=== PATIENT | female | born 1935 | race Caucasian/White ===

== ENCOUNTER 2019-09-09 06:57 | Inpatient (IN) ==
[2019-09-09] MEDS ORDERED: ONDANSETRON 4 MG/2 ML VIAL IV PRN (08:16)
[2019-09-09] MEDS ORDERED: hydrALAZINE 20 MG/1 ML VIAL IV PRN (08:16)
[2019-09-09] MEDS ORDERED: GLUCAGON 1 MG VIAL IM PRN (08:16)
[2019-09-09] MEDS ORDERED: DEXTROSE 50% 25 GM/50 ML VIAL IV PRN (08:16)
[2019-09-09] MEDS ORDERED: MORPHINE 4 MG/1 ML VIAL IV PRN (08:16)
[2019-09-09] MEDS ORDERED: FAMOTIDINE 20 MG/2 ML VIAL IV STA (08:24)
[2019-09-09] MEDS ORDERED: DIAZEPAM 5 MG TABLET PO STA (08:25)
[2019-09-09] MEDS ORDERED: SODIUM CHLORIDE 0.9% 1,000 ML IV SCH (08:30)
[2019-09-09] MEDS ORDERED: ceFAZolin 1,000 MG in SYRINGE 1 EACH IV ONE (08:42)
[2019-09-09] MEDS ORDERED: PHENYLEPHRINE 1 MG/10 ML SYRINGE IV ONE ×2 (09:11→11:43)
[2019-09-09] MEDS ORDERED: BUPIVACAINE SPINAL 0.75% 2 ML AMP SPINAL ONE (09:11)
[2019-09-09] MEDS ORDERED: MAGNESIUM HYDROXIDE SUSP 30 ML UDCUP PO PRN (10:00)
[2019-09-09] MEDS ORDERED: TRANEXAMIC ACID 1,000 MG/10 ML VIAL ONE ×2 (10:09→11:42)
[2019-09-09] MEDS ORDERED: BACITRACIN OINT 0.9 GM PACK TOP ONE (10:09)
[2019-09-09] MEDS ORDERED: ceFAZolin 1,000 MG VIAL ONE (10:10)
[2019-09-09] MEDS ORDERED: DEXAMETHASONE 4 MG/1 ML VIAL ONE (11:12)
[2019-09-09] MEDS ORDERED: BUPIVACAINE MPF 0.25% 30 ML VIAL ONE ×2 (11:12)
[2019-09-09] MEDS ORDERED: fentaNYL 100 MCG/2 ML VIAL ONE (11:42)
[2019-09-09] MEDS ORDERED: ePHEDrine 50 MG/ML VIAL ONE (11:42)
[2019-09-09] MEDS ORDERED: propofoL 200 MG/20 ML VIAL IV ONE (11:42)
[2019-09-09] MEDS ORDERED: ETOMIDATE 40 MG/20 ML VIAL IV ONE (11:42)
[2019-09-09] MEDS: ALBUTEROL/IPRATROPIUM 3 ML NEB RESP TX SCH ×2 (13:08→19:20)
[2019-09-09] MEDS: INSULIN REGULAR 100 UNIT/ML SUBCUT SCH ×3 (13:13→22:01)
[2019-09-09] MEDS: ceFAZolin 1,000 MG in SYRINGE 1 EACH IV SCH ×2 (13:57→22:01)
[2019-09-09] MEDS: PANTOPRAZOLE 40 MG TABLET PO SCH (13:57)
[2019-09-09] MEDS: oxyCODONE/ACETAMINOPHEN 5-325 MG TABLET PO PRN ×2 (13:57→16:09)
[2019-09-09] MEDS: DOCUSATE SODIUM 100 MG CAPSULE PO SCH ×3 (13:57→22:17)
[2019-09-09] MEDS: LACTATED RINGERS 1,000 ML IV SCH ×2 (13:58→23:49)
[2019-09-09] MEDS: GABAPENTIN 600 MG TABLET PO SCH ×3 (16:10→22:17)
[2019-09-09] MEDS: carvediloL 3.125 MG TABLET PO SCH ×2 (22:01→22:16)
[2019-09-10] MEDS: ALBUTEROL/IPRATROPIUM 3 ML NEB RESP TX SCH ×4 (00:52→19:33)
[2019-09-10 05:33] LABS: Basophils % 0.2 % (0.0-0.8); Hematocrit 30.2 VOL% (35.7-47.0); Hemoglobin 9.7 GM/DL (12.0-16.0); Immature Granulocytes % 0.3 %; Immature Granulocytes Absolute 0.02 #; Lymphocytes # 1.2 10*3/uL (1.4-4.0); Lymphocytes % 19.1 % (21.3-54.2); Mean Corpuscular HGB Conc 32.1 GM/DL (32-36); Mean Corpuscular Volume 86.5 FL (87-102); Mean Platelet Volume 9.7 FL (9.6-12.0); Monocytes % 8.2 % (1.7-12.7); Neutrophils % 72.2 % (38.7-73.9); Platelet Count 158 T/CUMM (130-400); Red Blood Count 3.49 MC/CUMM (3.8-5.5); Red Cell Distribution Width 13.2 % (9.3-17.3)
[2019-09-10 05:45] LABS: Calcium 8.3 MG/DL (8.5-10.1); Osmolality,Calculated 279.4 MOS/KG (273-304)
[2019-09-10] MEDS: FONDAPARINUX 2.5 MG/0.5 ML SYRINGE SUBCUT SCH (06:02)
[2019-09-10] MEDS ORDERED: LOSARTAN 50 MG TABLET PO SCH (09:00)
[2019-09-10] MEDS: oxyCODONE/ACETAMINOPHEN 5-325 MG TABLET PO PRN ×3 (09:39→21:35)
[2019-09-10] MEDS: GABAPENTIN 600 MG TABLET PO SCH ×3 (09:39→21:35)
[2019-09-10] MEDS: PANTOPRAZOLE 40 MG TABLET PO SCH (09:39)
[2019-09-10] MEDS: DOCUSATE SODIUM 100 MG CAPSULE PO SCH ×2 (09:39→21:34)
[2019-09-10] MEDS: INSULIN REGULAR 100 UNIT/ML SUBCUT SCH ×4 (09:40→21:35)
[2019-09-10] MEDS: LACTATED RINGERS 1,000 ML IV SCH (09:46)
[2019-09-10] MEDS: carvediloL 3.125 MG TABLET PO SCH ×2 (09:46→21:35)
[2019-09-11] MEDS: ALBUTEROL/IPRATROPIUM 3 ML NEB RESP TX SCH ×2 (00:46→07:10)
[2019-09-11] MEDS: oxyCODONE/ACETAMINOPHEN 5-325 MG TABLET PO PRN ×3 (05:52→21:17)
[2019-09-11] MEDS: FONDAPARINUX 2.5 MG/0.5 ML SYRINGE SUBCUT SCH (05:58)
[2019-09-11 06:26] LABS: Basophils % 0.3 % (0.0-0.8); Hematocrit 31.9 VOL% (35.7-47.0); Hemoglobin 10.1 GM/DL (12.0-16.0); Immature Granulocytes % 0.5 %; Immature Granulocytes Absolute 0.02 #; Lymphocytes # 1.3 10*3/uL (1.4-4.0); Lymphocytes % 31.3 % (21.3-54.2); Mean Corpuscular HGB Conc 31.7 GM/DL (32-36); Mean Corpuscular Volume 89.1 FL (87-102); Mean Platelet Volume 9.8 FL (9.6-12.0); Neutrophils % 56.9 % (38.7-73.9); Platelet Count 147 T/CUMM (130-400); Red Blood Count 3.58 MC/CUMM (3.8-5.5); Red Cell Distribution Width 13.6 % (9.3-17.3)
[2019-09-11] MEDS ORDERED: NITROGLYCERIN SL 0.4 MG TABLET SL PRN (07:12)
[2019-09-11] MEDS ORDERED: BISACODYL 5 MG TABLET PO ONE (08:25)
[2019-09-11] MEDS: PANTOPRAZOLE 40 MG TABLET PO SCH (09:40)
[2019-09-11] MEDS: GABAPENTIN 600 MG TABLET PO SCH ×3 (09:40→21:19)
[2019-09-11] MEDS: carvediloL 3.125 MG TABLET PO SCH ×2 (09:40→21:17)
[2019-09-11] MEDS: DOCUSATE SODIUM 100 MG CAPSULE PO SCH ×2 (09:40→21:17)
[2019-09-11] MEDS: INSULIN REGULAR 100 UNIT/ML SUBCUT SCH ×4 (09:42→21:19)
[2019-09-11] MEDS ORDERED: ALBUTEROL/IPRATROPIUM 3 ML NEB RESP TX PRN (10:02)
[2019-09-11 14:32] LABS: Apearance,Urine CLEAR (Clear); Bilirubin,Urine Negative (Negative); Blood, Urine Small mg/dL (Negative); Glucose,Urine (UA) Negative (Negative); Ketones,Urine Negative (Negative); Nitrite,Urine Negative (Negative); Protein,Urine Negative; RBC,Urine 8 /HPF (0-4); Squamous Epithelial Cell,Urine Occasional /HPF (0-10); Urine Color Yellow (Yellow); Urine Urobilinogen < 2.0 EU/DL (0.2-1.0); WBC,Urine 11 /HPF (0-6)
[2019-09-12] MEDS: FONDAPARINUX 2.5 MG/0.5 ML SYRINGE SUBCUT SCH (06:02)
[2019-09-12 06:06] LABS: Basophils % 0.2 % (0.0-0.8); Eosinophils # 0.1 10*3/uL (0.0-0.87); Eosinophils % 2.6 % (0.00-10.9); Hematocrit 29.8 VOL% (35.7-47.0); Hemoglobin 9.5 GM/DL (12.0-16.0); Immature Granulocytes % 0.5 %; Immature Granulocytes Absolute 0.02 #; Lymphocytes # 1.5 10*3/uL (1.4-4.0); Lymphocytes % 34.7 % (21.3-54.2); Mean Corpuscular HGB Conc 31.9 GM/DL (32-36); Mean Corpuscular Volume 86.6 FL (87-102); Mean Platelet Volume 10.5 FL (9.6-12.0); Monocytes % 8.9 % (1.7-12.7); Neutrophils % 53.1 % (38.7-73.9); Platelet Count 141 T/CUMM (130-400); Red Blood Count 3.44 MC/CUMM (3.8-5.5); Red Cell Distribution Width 13.7 % (9.3-17.3); White Blood Count 4.2 T/CUMM (4-12)
[2019-09-12 06:48] LABS: Calcium 8.2 MG/DL (8.5-10.1); Osmolality,Calculated 284.1 MOS/KG (273-304)
[2019-09-12] MEDS ORDERED: TUBERCULIN SKIN TEST 0.1 ML SYRINGE INTRADERM ONE (08:20)
[2019-09-12] MEDS ORDERED: BISACODYL 10 MG SUPP RECTAL ONE (08:43)
[2019-09-12] MEDS ORDERED: POLYETHYLENE GLYCOL POWDER 17 GM PACK PO SCH (09:00)
[2019-09-12] MEDS: oxyCODONE/ACETAMINOPHEN 5-325 MG TABLET PO PRN (09:04)
[2019-09-12] MEDS: carvediloL 3.125 MG TABLET PO SCH (09:33)
[2019-09-12] MEDS: DOCUSATE SODIUM 100 MG CAPSULE PO SCH (09:33)
[2019-09-12] MEDS: GABAPENTIN 600 MG TABLET PO SCH (09:33)
[2019-09-12] MEDS: PANTOPRAZOLE 40 MG TABLET PO SCH (09:33)
[2019-09-12] MEDS: INSULIN REGULAR 100 UNIT/ML SUBCUT SCH ×2 (09:53→11:52)
[2019-09-12 12:03] VITALS: BP 135/43
== END 2019-09-12 15:21 | disposition swing bed (61) | DRG 481 ==
LOC: EDUNIT# → EDBD → N.ED 06:57 → N.EDINP 08:16 → SUATTDRO 08:16 → N.EDINP 09:05 → N.3E 13:07
PROVIDERS: ADMIT Internal Medicine; ATTEND Internal Medicine

== ENCOUNTER 2020-07-24 11:04 | Observation (INO) ==
[2020-07-24] MEDS ORDERED: SODIUM CHLORIDE 0.9% 500 ML IV STA (11:52)
[2020-07-24 12:38] LABS: Basophils % 0.5 % (0.0-0.8); Hematocrit 42.5 VOL% (35.7-47.0); Immature Granulocytes % 0.3 %; Immature Granulocytes Absolute 0.02 #; Lymphocytes # 1.2 10*3/uL (1.4-4.0); Lymphocytes % 14.7 % (21.3-54.2); Mean Corpuscular HGB Conc 32.9 GM/DL (32-36); Mean Corpuscular Volume 86.4 FL (87-102); Mean Platelet Volume 10.1 FL (9.6-12.0); Monocytes % 5.4 % (1.7-12.7); Neutrophils % 79.1 % (38.7-73.9); Platelet Count 256 T/CUMM (130-400); Red Blood Count 4.92 MC/CUMM (3.8-5.5); Red Cell Distribution Width 13.6 % (9.3-17.3)
[2020-07-24 12:52] LABS: PT Patient Result 11.3 SECS (10.5-12.0); Partial Thromboplastin Time 25.8 SECS (23.9-33.8)
[2020-07-24 13:05] LABS: Albumin 4.2 G/DL (3.4-5.0); Bilirubin,Total 0.5 MG/DL (0.2-1.0); Calcium 9.8 MG/DL (8.5-10.1); Osmolality,Calculated 291.1 MOS/KG (273-304); Potassium 3.6 MMOL/L (3.5-5.1); Total Protein 8.1 G/DL (6.4-8.2)
[2020-07-24] MEDS ORDERED: ENOXAPARIN 60 MG/0.6 ML SYRINGE SUBCUT STA (13:06)
[2020-07-24] MEDS ORDERED: ONDANSETRON 4 MG/2 ML VIAL IV STA (13:07)
[2020-07-24] MEDS ORDERED: MORPHINE 4 MG/1 ML VIAL IV STA (13:07)
[2020-07-24] MEDS ORDERED: DEXTROSE 50% 25 GM/50 ML VIAL IV PRN (14:29)
[2020-07-24] MEDS ORDERED: NITROGLYCERIN SL 0.4 MG TABLET SL PRN (14:29)
[2020-07-24] MEDS ORDERED: ONDANSETRON 4 MG/2 ML VIAL IV PRN (14:29)
[2020-07-24] MEDS ORDERED: GLUCAGON 1 MG VIAL IM PRN (14:29)
[2020-07-24] MEDS ORDERED: ACETAMINOPHEN 325 MG TABLET PO PRN (14:29)
[2020-07-24] MEDS ORDERED: hydrALAZINE 20 MG/1 ML VIAL IV PRN (14:39)
[2020-07-24 15:20] LABS: Risk Ratio 9.21; Thyroid Stimulating Hormone 1.54 uIU/ml (0.358-3.74); VLDL CHOLESTEROL 50.2 MG/DL
[2020-07-24] MEDS: hydrALAZINE 25 MG TABLET PO SCH ×2 (16:49→20:17)
[2020-07-24] MEDS: LOSARTAN 50 MG TABLET PO SCH (16:49)
[2020-07-24] MEDS: traMADol 50 MG TABLET PO SCH ×2 (16:50→20:17)
[2020-07-24] MEDS ORDERED: ALBUTEROL 2.5 MG/3 ML NEB RESP TX PRN (18:15)
[2020-07-24] MEDS: INSULIN LISPRO 100 UNIT/ML SUBCUT SCH ×2 (18:18→20:17)
[2020-07-24] MEDS: GABAPENTIN 300 MG CAPSULE PO SCH (20:17)
[2020-07-24] MEDS ORDERED: ATORVASTATIN 40 MG TABLET PO SCH (21:00)
[2020-07-24] MEDS ORDERED: DOXEPIN 25 MG CAPSULE PO SCH (21:00)
[2020-07-25] MEDS: ENOXAPARIN 60 MG/0.6 ML SYRINGE SUBCUT SCH ×2 (01:23→12:32)
[2020-07-25 05:20] LABS: Basophils % 0.3 % (0.0-0.8); Eosinophils % 0.7 % (0.00-10.9); Hematocrit 38.6 VOL% (35.7-47.0); Hemoglobin 12.3 GM/DL (12.0-16.0); Immature Granulocytes % 0.3 %; Immature Granulocytes Absolute 0.02 #; Lymphocytes # 1.6 10*3/uL (1.4-4.0); Lymphocytes % 27.2 % (21.3-54.2); Mean Corpuscular HGB Conc 31.9 GM/DL (32-36); Mean Corpuscular Volume 88.3 FL (87-102); Mean Platelet Volume 9.9 FL (9.6-12.0); Monocytes % 9.8 % (1.7-12.7); Neutrophils % 61.7 % (38.7-73.9); Platelet Count 190 T/CUMM (130-400); Red Blood Count 4.37 MC/CUMM (3.8-5.5); Red Cell Distribution Width 13.7 % (9.3-17.3); White Blood Count 5.9 T/CUMM (4-12)
[2020-07-25 05:33] LABS: Calcium 8.9 MG/DL (8.5-10.1); Osmolality,Calculated 290.1 MOS/KG (273-304); Potassium 3.4 MMOL/L (3.5-5.1)
[2020-07-25] MEDS ORDERED: ENOXAPARIN 40 MG/0.4 ML SYRINGE SUBCUT SCH (08:00)
[2020-07-25] MEDS: hydrALAZINE 25 MG TABLET PO SCH ×2 (08:35→16:39)
[2020-07-25] MEDS: LOSARTAN 50 MG TABLET PO SCH (08:36)
[2020-07-25] MEDS: traMADol 50 MG TABLET PO SCH ×2 (08:36→16:39)
[2020-07-25] MEDS: GABAPENTIN 300 MG CAPSULE PO SCH (08:36)
[2020-07-25] MEDS: INSULIN LISPRO 100 UNIT/ML SUBCUT SCH ×2 (08:39→12:33)
[2020-07-25] MEDS ORDERED: ASPIRIN CHEW 81 MG TABLET PO SCH (09:00)
[2020-07-25] MEDS ORDERED: PANTOPRAZOLE 40 MG TABLET PO SCH (09:00)
[2020-07-25 16:39] VITALS: BP 141/65
== END 2020-07-25 17:09 | disposition home or self-care (01) ==
LOC: N.ED 11:04 → N.EDINP 11:04 → N.TELES 17:37
PROVIDERS: ADMIT Internal Medicine; ATTEND Internal Medicine

== ENCOUNTER 2020-09-28 17:18 | Inpatient (IN) ==
[2020-09-28] MEDS ORDERED: diphenhydrAMINE CAP 25 MG CAPSULE PO PRN (20:40)
[2020-09-28] MEDS ORDERED: GLUCAGON 1 MG VIAL IM PRN ×2 (20:40)
[2020-09-28] MEDS ORDERED: MORPHINE 2 MG/1 ML SYRINGE IV PRN (20:40)
[2020-09-28] MEDS ORDERED: hydrALAZINE 20 MG/1 ML VIAL IV PRN (20:40)
[2020-09-28] MEDS ORDERED: guaiFENesin/DM ER 600-30 MG TABLET PO PRN (20:40)
[2020-09-28] MEDS ORDERED: NICOTINE 21 MG/24 HR PATCH TRANSDERM PRN (20:40)
[2020-09-28] MEDS ORDERED: ONDANSETRON 4 MG/2 ML VIAL IV PRN (20:40)
[2020-09-28] MEDS ORDERED: DEXTROSE 50% 25 GM/50 ML VIAL IV PRN ×2 (20:40)
[2020-09-28 21:00] LABS: Basophils % 0.2 % (0.0-0.8); Eosinophils % 0.9 % (0.00-10.9); Hematocrit 41.2 VOL% (35.7-47.0); Hemoglobin 13.3 GM/DL (12.0-16.0); Immature Granulocytes % 0.4 %; Immature Granulocytes Absolute 0.02 #; Lymphocytes # 1.5 10*3/uL (1.4-4.0); Lymphocytes % 33.6 % (21.3-54.2); Mean Corpuscular HGB Conc 32.3 GM/DL (32-36); Mean Corpuscular Volume 86.2 FL (87-102); Monocytes % 9.4 % (1.7-12.7); Neutrophils % 55.5 % (38.7-73.9); Platelet Count 209 T/CUMM (130-400); Red Blood Count 4.78 MC/CUMM (3.8-5.5); Red Cell Distribution Width 13.2 % (9.3-17.3); White Blood Count 4.6 T/CUMM (4-12)
[2020-09-28 21:17] LABS: Calcium 8.7 MG/DL (8.5-10.1); Osmolality,Calculated 281.5 MOS/KG (273-304); Potassium 3.6 MMOL/L (3.5-5.1)
[2020-09-28 21:21] LABS: Albumin 3.5 G/DL (3.4-5.0); Bilirubin,Direct 0.15 MG/DL (0.0-0.20); Bilirubin,Indirect 1.2 MG/DL (0.0-1.0); Bilirubin,Total 1.3 MG/DL (0.20-1.00); Total Protein 6.1 G/DL (6.4-8.2)
[2020-09-28 21:22] LABS: PT Patient Result 10.9 SECS (10.5-12.0); Partial Thromboplastin Time 25.6 SECS (23.9-33.8)
[2020-09-28] MEDS ORDERED: TICAGRELOR 90 MG TABLET PO ONE (21:34)
[2020-09-28] MEDS: DOCUSATE SODIUM 100 MG CAPSULE PO SCH (21:46)
[2020-09-28] MEDS: INSULIN LISPRO 100 UNIT/ML SUBCUT SCH (21:46)
[2020-09-28] MEDS: ENOXAPARIN 60 MG/0.6 ML SYRINGE SUBCUT SCH (21:47)
[2020-09-29] MEDS: NITROGLYCERIN SL 0.4 MG TABLET SL PRN ×2 (02:22→02:27)
[2020-09-29 03:07] LABS: Basophils % 0.2 % (0.0-0.8); Eosinophils # 0.1 10*3/uL (0.0-0.87); Hematocrit 39.3 VOL% (35.7-47.0); Hemoglobin 13.2 GM/DL (12.0-16.0); Immature Granulocytes % 0.4 %; Immature Granulocytes Absolute 0.02 #; Lymphocytes # 1.4 10*3/uL (1.4-4.0); Lymphocytes % 28.9 % (21.3-54.2); Mean Corpuscular HGB Conc 33.6 GM/DL (32-36); Mean Corpuscular Volume 84.9 FL (87-102); Mean Platelet Volume 9.9 FL (9.6-12.0); Monocytes % 8.4 % (1.7-12.7); Neutrophils % 61.1 % (38.7-73.9); Platelet Count 203 T/CUMM (130-400); Red Blood Count 4.63 MC/CUMM (3.8-5.5); Red Cell Distribution Width 13.2 % (9.3-17.3)
[2020-09-29] MEDS ORDERED: NITROGLYCERIN SL 0.4 MG TABLET SL PRN (06:59)
[2020-09-29] MEDS: INSULIN LISPRO 100 UNIT/ML SUBCUT SCH ×4 (09:48→21:14)
[2020-09-29] MEDS: LOSARTAN 50 MG TABLET PO SCH (09:48)
[2020-09-29] MEDS: ASPIRIN CHEW 81 MG TABLET PO SCH (09:49)
[2020-09-29] MEDS: DOCUSATE SODIUM 100 MG CAPSULE PO SCH ×2 (09:49→21:13)
[2020-09-29] MEDS: PANTOPRAZOLE 40 MG TABLET PO SCH (09:49)
[2020-09-29] MEDS: ENOXAPARIN 60 MG/0.6 ML SYRINGE SUBCUT SCH ×2 (09:50→21:13)
[2020-09-29] MEDS: NAPROXEN 250 MG TABLET PO PRN ×3 (09:50→21:13)
[2020-09-29] MEDS ORDERED: ATORVASTATIN 40 MG TABLET PO SCH (21:00)
[2020-09-29] MEDS ORDERED: DOXEPIN 100 MG CAPSULE PO SCH (21:00)
[2020-09-30] MEDS: INSULIN LISPRO 100 UNIT/ML SUBCUT SCH ×2 (08:42→13:05)
[2020-09-30] MEDS: ASPIRIN CHEW 81 MG TABLET PO SCH (08:43)
[2020-09-30] MEDS: LOSARTAN 50 MG TABLET PO SCH (08:44)
[2020-09-30] MEDS: PANTOPRAZOLE 40 MG TABLET PO SCH (08:44)
[2020-09-30] MEDS: DOCUSATE SODIUM 100 MG CAPSULE PO SCH (08:44)
[2020-09-30] MEDS: ENOXAPARIN 60 MG/0.6 ML SYRINGE SUBCUT SCH (08:45)
[2020-09-30 12:27] VITALS: BP 190/81
== END 2020-09-30 14:35 | disposition home health service (06) | DRG 313 ==
LOC: N.TELEN
PROVIDERS: ADMIT Internal Medicine; ATTEND Internal Medicine Geriatric Medicine

== ENCOUNTER 2020-11-23 13:40 | Inpatient (IN) ==
[2020-11-23 15:38] LABS: Basophils % 0.3 % (0.0-0.8); Eosinophils # 0.2 10*3/uL (0.0-0.87); Eosinophils % 3.1 % (0.00-10.9); Hematocrit 42.6 VOL% (35.7-47.0); Hemoglobin 13.2 GM/DL (12.0-16.0); Immature Granulocytes % 0.1 %; Immature Granulocytes Absolute 0.01 #; Lymphocytes # 1.4 10*3/uL (1.4-4.0); Lymphocytes % 18.8 % (21.3-54.2); Mean Corpuscular Volume 85.7 FL (87-102); Monocytes % 5.4 % (1.7-12.7); Neutrophils % 72.3 % (38.7-73.9); Platelet Count 172 T/CUMM (130-400); Red Blood Count 4.97 MC/CUMM (3.8-5.5); White Blood Count 7.2 T/CUMM (4-12)
[2020-11-23 15:51] LABS: PT Patient Result 10.9 SECS (10.5-12.0)
[2020-11-23 15:57] LABS: Albumin 3.9 G/DL (3.4-5.0); Bilirubin,Total 0.8 MG/DL (0.20-1.00); Calcium 8.8 MG/DL (8.5-10.1); Osmolality,Calculated 281.3 MOS/KG (273-304); Total Protein 6.9 G/DL (6.4-8.2)
[2020-11-23] MEDS ORDERED: guaiFENesin/DM ER 600-30 MG TABLET PO PRN (18:00)
[2020-11-23] MEDS ORDERED: DEXTROSE 50% 25 GM/50 ML VIAL IV PRN ×2 (18:00→18:06)
[2020-11-23] MEDS ORDERED: hydrALAZINE 20 MG/1 ML VIAL IV PRN (18:00)
[2020-11-23] MEDS ORDERED: NICOTINE 21 MG/24 HR PATCH TRANSDERM PRN (18:00)
[2020-11-23] MEDS ORDERED: diphenhydrAMINE CAP 25 MG CAPSULE PO PRN (18:00)
[2020-11-23] MEDS ORDERED: DOCUSATE SODIUM 100 MG CAPSULE PO PRN (18:00)
[2020-11-23] MEDS ORDERED: GLUCAGON 1 MG VIAL IM PRN ×2 (18:00→18:06)
[2020-11-23] MEDS ORDERED: ENOXAPARIN 40 MG/0.4 ML SYRINGE SUBCUT SCH (18:00)
[2020-11-23] MEDS ORDERED: ZALEPLON 5 MG CAPSULE PO PRN (18:00)
[2020-11-23] MEDS ORDERED: ALBUTEROL/IPRATROPIUM 3 ML NEB RESP TX PRN (18:00)
[2020-11-23] MEDS: MORPHINE 2 MG/1 ML SYRINGE IV PRN (21:59)
[2020-11-23] MEDS ORDERED: ENOXAPARIN 30 MG/0.3 ML SYRINGE SUBCUT ONE (23:13)
[2020-11-24] MEDS: INSULIN LISPRO 100 UNIT/ML SUBCUT SCH ×4 (00:10→16:30)
[2020-11-24] MEDS: MORPHINE 2 MG/1 ML SYRINGE IV PRN ×3 (04:15→17:13)
[2020-11-24 05:38] LABS: Basophils % 0.5 % (0.0-0.8); Eosinophils # 0.2 10*3/uL (0.0-0.87); Eosinophils % 3.4 % (0.00-10.9); Hematocrit 37.2 VOL% (35.7-47.0); Hemoglobin 11.5 GM/DL (12.0-16.0); Immature Granulocytes % 0.3 %; Immature Granulocytes Absolute 0.02 #; Lymphocytes # 1.2 10*3/uL (1.4-4.0); Lymphocytes % 19.8 % (21.3-54.2); Mean Corpuscular HGB Conc 30.9 GM/DL (32-36); Mean Corpuscular Volume 87.1 FL (87-102); Monocytes % 7.2 % (1.7-12.7); Neutrophils % 68.8 % (38.7-73.9); Platelet Count 179 T/CUMM (130-400); Red Blood Count 4.27 MC/CUMM (3.8-5.5); Red Cell Distribution Width 14.1 % (9.3-17.3); White Blood Count 6.2 T/CUMM (4-12)
[2020-11-24 06:11] LABS: Calcium 8.1 MG/DL (8.5-10.1); Osmolality,Calculated 281.4 MOS/KG (273-304); Potassium 3.3 MMOL/L (3.5-5.1)
[2020-11-24] MEDS: PANTOPRAZOLE 40 MG TABLET PO SCH (08:41)
[2020-11-24] MEDS ORDERED: POTASSIUM CHLORIDE 20 MEQ TABLET PO STA (08:45)
[2020-11-24] MEDS ORDERED: MAGNESIUM SULF RIDER 2 GM/50 ML PREMIX IV ONE (09:30)
[2020-11-24] MEDS ORDERED: ERGOCALCIFEROL 50,000 UNIT CAPSULE PO SCH (10:00)
[2020-11-24] MEDS ORDERED: DILTIAZEM CD 120 MG CAPSULE PO SCH (10:00)
[2020-11-24] MEDS ORDERED: APIXABAN 5 MG TABLET PO SCH (10:00)
[2020-11-24 11:25] LABS: Potassium 3.8 MMOL/L (3.5-5.1)
[2020-11-24] MEDS: SOTALOL 80 MG TABLET PO SCH ×2 (11:53→22:11)
[2020-11-24] MEDS: ENOXAPARIN 60 MG/0.6 ML SYRINGE SUBCUT SCH ×2 (11:54→22:11)
[2020-11-24] MEDS: traMADol 50 MG TABLET PO SCH ×2 (14:50→22:11)
[2020-11-24] MEDS: ATORVASTATIN 40 MG TABLET PO SCH (22:11)
[2020-11-24] MEDS: ASPIRIN CHEW 81 MG TABLET PO SCH (22:12)
[2020-11-25] MEDS: INSULIN LISPRO 100 UNIT/ML SUBCUT SCH ×5 (07:25→22:27)
[2020-11-25] MEDS: ONDANSETRON 4 MG/2 ML VIAL IV PRN ×2 (07:31→12:16)
[2020-11-25] MEDS: MORPHINE 2 MG/1 ML SYRINGE IV PRN ×2 (07:32→12:16)
[2020-11-25] MEDS ORDERED: traMADol 50 MG TABLET PO SCH (08:30)
[2020-11-25] MEDS: ENOXAPARIN 60 MG/0.6 ML SYRINGE SUBCUT SCH (10:10)
[2020-11-25] MEDS: POTASSIUM CHLORIDE 10 MEQ TABLET PO SCH (10:11)
[2020-11-25] MEDS: SOTALOL 80 MG TABLET PO SCH ×2 (10:11→11:46)
[2020-11-25] MEDS: traMADol 50 MG TABLET PO SCH ×3 (10:11→22:25)
[2020-11-25] MEDS: PANTOPRAZOLE 40 MG TABLET PO SCH (10:11)
[2020-11-25] MEDS: LOSARTAN 50 MG TABLET PO SCH (10:11)
[2020-11-25] MEDS: LIDOCAINE 5% PATCH TRANSDERM SCH (10:12)
[2020-11-25] MEDS ORDERED: SOTALOL 80 MG TABLET PO SCH (21:00)
[2020-11-25] MEDS: ASPIRIN CHEW 81 MG TABLET PO SCH (22:25)
[2020-11-25] MEDS: ATORVASTATIN 40 MG TABLET PO SCH (22:25)
[2020-11-26 06:16] LABS: Basophils % 0.3 % (0.0-0.8); Eosinophils # 0.3 10*3/uL (0.0-0.87); Eosinophils % 8.2 % (0.00-10.9); Hematocrit 35.7 VOL% (35.7-47.0); Hemoglobin 11.1 GM/DL (12.0-16.0); Immature Granulocytes % 0.3 %; Immature Granulocytes Absolute 0.01 #; Lymphocytes # 1.2 10*3/uL (1.4-4.0); Lymphocytes % 33.1 % (21.3-54.2); Mean Corpuscular HGB Conc 31.1 GM/DL (32-36); Mean Corpuscular Volume 87.5 FL (87-102); Mean Platelet Volume 10.5 FL (9.6-12.0); Neutrophils % 49.1 % (38.7-73.9); Platelet Count 144 T/CUMM (130-400); Red Blood Count 4.08 MC/CUMM (3.8-5.5); Red Cell Distribution Width 13.9 % (9.3-17.3); White Blood Count 3.7 T/CUMM (4-12)
[2020-11-26 06:48] LABS: Albumin 2.7 G/DL (3.4-5.0); Bilirubin,Total 0.7 MG/DL (0.20-1.00); Calcium 8.5 MG/DL (8.5-10.1); Osmolality,Calculated 283.4 MOS/KG (273-304); Potassium 4.2 MMOL/L (3.5-5.1); Total Protein 5.6 G/DL (6.4-8.2)
[2020-11-26] MEDS: INSULIN LISPRO 100 UNIT/ML SUBCUT SCH ×4 (08:07→21:02)
[2020-11-26] MEDS ORDERED: METOPROLOL TARTRATE 5 MG/5 ML VIAL IV PRN (11:55)
[2020-11-26] MEDS ORDERED: LIDOCAINE 1% 20 ML VIAL ONE (14:08)
[2020-11-26] MEDS ORDERED: DEXAMETHASONE 4 MG/1 ML VIAL ONE (14:08)
[2020-11-26] MEDS ORDERED: TISSUE ADHESIVE 1 EACH APPLICATOR TOP ONE (14:08)
[2020-11-26] MEDS ORDERED: fentaNYL 100 MCG/2 ML VIAL ONE (15:04)
[2020-11-26] MEDS ORDERED: LIDOCAINE 2% 5 ML VIAL ONE (15:07)
[2020-11-26] MEDS ORDERED: propofoL 200 MG/20 ML VIAL IV ONE (15:07)
[2020-11-26] MEDS ORDERED: CLINDAMYCIN INJ 600 MG/50 ML PREMIX IV ONE (15:19)
[2020-11-26] MEDS: traMADol 50 MG TABLET PO SCH ×3 (15:32→21:02)
[2020-11-26] MEDS: LOSARTAN 50 MG TABLET PO SCH (17:42)
[2020-11-26] MEDS: POTASSIUM CHLORIDE 10 MEQ TABLET PO SCH (17:42)
[2020-11-26] MEDS: PANTOPRAZOLE 40 MG TABLET PO SCH (17:43)
[2020-11-26] MEDS: LIDOCAINE 5% PATCH TRANSDERM SCH (17:44)
[2020-11-26] MEDS: ASPIRIN CHEW 81 MG TABLET PO SCH (21:02)
[2020-11-27] MEDS: MORPHINE 2 MG/1 ML SYRINGE IV PRN ×4 (04:41→23:02)
[2020-11-27 06:16] LABS: Albumin 2.8 G/DL (3.4-5.0); Bilirubin,Total 0.8 MG/DL (0.20-1.00); Calcium 8.3 MG/DL (8.5-10.1); Osmolality,Calculated 277.5 MOS/KG (273-304); Potassium 3.9 MMOL/L (3.5-5.1)
[2020-11-27 06:48] LABS: Hepatitis B Core IgM Quant < 0.05 Index; Hepatitis B Surface Ag Quant < 0.10 Index; Hepatitis B Surface Ag Result Non-Reactive (NonReactive); Hepatitis C Virus Ab Quant 0.02 Index; Hepatitis C Virus Ab Result Non-Reactive (NonReactive)
[2020-11-27] MEDS: INSULIN LISPRO 100 UNIT/ML SUBCUT SCH ×4 (08:11→20:57)
[2020-11-27] MEDS: ONDANSETRON 4 MG/2 ML VIAL IV PRN (08:45)
[2020-11-27] MEDS: LIDOCAINE 5% PATCH TRANSDERM SCH (08:51)
[2020-11-27] MEDS: POTASSIUM CHLORIDE 10 MEQ TABLET PO SCH (08:52)
[2020-11-27] MEDS: LOSARTAN 50 MG TABLET PO SCH (08:52)
[2020-11-27] MEDS: traMADol 50 MG TABLET PO SCH ×3 (08:52→20:56)
[2020-11-27] MEDS: PANTOPRAZOLE 40 MG TABLET PO SCH (08:52)
[2020-11-27] MEDS: ASPIRIN CHEW 81 MG TABLET PO SCH (20:56)
[2020-11-28] MEDS: INSULIN LISPRO 100 UNIT/ML SUBCUT SCH ×4 (07:59→21:40)
[2020-11-28 08:00] LABS: Basophils % 0.5 % (0.0-0.8); Eosinophils # 0.4 10*3/uL (0.0-0.87); Eosinophils % 8.1 % (0.00-10.9); Hematocrit 39.1 VOL% (35.7-47.0); Hemoglobin 12.4 GM/DL (12.0-16.0); Immature Granulocytes % 0.7 %; Immature Granulocytes Absolute 0.03 #; Lymphocytes # 0.9 10*3/uL (1.4-4.0); Lymphocytes % 20.6 % (21.3-54.2); Mean Corpuscular HGB Conc 31.7 GM/DL (32-36); Mean Corpuscular Volume 85.6 FL (87-102); Mean Platelet Volume 10.1 FL (9.6-12.0); Monocytes % 8.8 % (1.7-12.7); Neutrophils % 61.3 % (38.7-73.9); Platelet Count 158 T/CUMM (130-400); Red Blood Count 4.57 MC/CUMM (3.8-5.5); Red Cell Distribution Width 13.7 % (9.3-17.3); White Blood Count 4.3 T/CUMM (4-12)
[2020-11-28 08:19] LABS: Calcium 8.9 MG/DL (8.5-10.1); Osmolality,Calculated 279.4 MOS/KG (273-304); Potassium 4.3 MMOL/L (3.5-5.1)
[2020-11-28] MEDS: LIDOCAINE 5% PATCH TRANSDERM SCH (09:32)
[2020-11-28] MEDS: MORPHINE 2 MG/1 ML SYRINGE IV PRN ×2 (09:39→20:49)
[2020-11-28] MEDS: traMADol 50 MG TABLET PO SCH ×3 (11:03→20:46)
[2020-11-28] MEDS: LACTATED RINGERS 1,000 ML IV SCH (11:12)
[2020-11-28] MEDS ORDERED: propofoL 200 MG/20 ML VIAL IV ONE (12:21)
[2020-11-28] MEDS ORDERED: LIDOCAINE 2% 5 ML VIAL ONE (12:21)
[2020-11-28] MEDS: POTASSIUM CHLORIDE 10 MEQ TABLET PO SCH (13:34)
[2020-11-28] MEDS: LOSARTAN 50 MG TABLET PO SCH (13:34)
[2020-11-28] MEDS: PANTOPRAZOLE 40 MG TABLET PO SCH (13:34)
[2020-11-28] MEDS: ASPIRIN CHEW 81 MG TABLET PO SCH (20:45)
[2020-11-29] MEDS: MORPHINE 2 MG/1 ML SYRINGE IV PRN ×2 (01:43→12:39)
[2020-11-29] MEDS: LACTATED RINGERS 1,000 ML IV SCH (05:40)
[2020-11-29] MEDS: INSULIN LISPRO 100 UNIT/ML SUBCUT SCH ×2 (07:24→12:56)
[2020-11-29 07:58] LABS: Basophils % 0.4 % (0.0-0.8); Eosinophils # 0.3 10*3/uL (0.0-0.87); Hematocrit 37.9 VOL% (35.7-47.0); Hemoglobin 12.3 GM/DL (12.0-16.0); Immature Granulocytes % 0.4 %; Immature Granulocytes Absolute 0.02 #; Lymphocytes # 1.1 10*3/uL (1.4-4.0); Lymphocytes % 23.7 % (21.3-54.2); Mean Corpuscular HGB Conc 32.5 GM/DL (32-36); Mean Corpuscular Volume 85.2 FL (87-102); Mean Platelet Volume 10.2 FL (9.6-12.0); Monocytes % 10.4 % (1.7-12.7); Neutrophils % 59.1 % (38.7-73.9); Platelet Count 159 T/CUMM (130-400); Red Blood Count 4.45 MC/CUMM (3.8-5.5); Red Cell Distribution Width 13.7 % (9.3-17.3); White Blood Count 4.5 T/CUMM (4-12)
[2020-11-29 08:29] LABS: Calcium 8.7 MG/DL (8.5-10.1); Osmolality,Calculated 278.5 MOS/KG (273-304)
[2020-11-29] MEDS ORDERED: BISACODYL 10 MG SUPP RECTAL ONE (08:45)
[2020-11-29 08:49] LABS: Albumin 2.9 G/DL (3.4-5.0); Bilirubin,Direct 0.38 MG/DL (0.0-0.20); Bilirubin,Indirect 0.4 MG/DL (0.0-1.0); Bilirubin,Total 0.8 MG/DL (0.20-1.00); Total Protein 6.1 G/DL (6.4-8.2)
[2020-11-29] MEDS: LIDOCAINE 5% PATCH TRANSDERM SCH (09:41)
[2020-11-29] MEDS: LOSARTAN 50 MG TABLET PO SCH (09:41)
[2020-11-29] MEDS: POTASSIUM CHLORIDE 10 MEQ TABLET PO SCH (09:41)
[2020-11-29] MEDS: PANTOPRAZOLE 40 MG TABLET PO SCH (09:42)
[2020-11-29] MEDS: traMADol 50 MG TABLET PO SCH (09:42)
[2020-11-29 13:15] VITALS: BP 145/62
== END 2020-11-29 14:34 | disposition swing bed (61) | DRG 478 ==
LOC: N.ED 13:40 → SUATTDRO 18:00 → N.EDINP 18:00 → N.TELEN 19:47
PROVIDERS: ADMIT Internal Medicine; ATTEND Internal Medicine

== ENCOUNTER 2021-02-22 17:10 | Inpatient (IN) ==
[2021-02-22 18:21] LABS: Basophils % 0.2 % (0.0-0.8); Eosinophils # 0.1 10*3/uL (0.0-0.87); Eosinophils % 0.9 % (0.00-10.9); Hematocrit 35.9 VOL% (35.7-47.0); Immature Granulocytes % 0.5 %; Immature Granulocytes Absolute 0.03 #; Lymphocytes # 0.6 10*3/uL (1.4-4.0); Lymphocytes % 10.3 % (21.3-54.2); Mean Corpuscular HGB Conc 30.6 GM/DL (32-36); Mean Corpuscular Volume 86.9 FL (87-102); Mean Platelet Volume 9.7 FL (9.6-12.0); Monocytes % 8.7 % (1.7-12.7); Neutrophils % 79.4 % (38.7-73.9); Platelet Count 214 T/CUMM (130-400); Red Blood Count 4.13 MC/CUMM (3.8-5.5); Red Cell Distribution Width 15.1 % (9.3-17.3); White Blood Count 5.8 T/CUMM (4-12)
[2021-02-22 18:52] LABS: Albumin 3.5 G/DL (3.4-5.0); Bilirubin,Total 0.6 MG/DL (0.20-1.00); Calcium 9.1 MG/DL (8.5-10.1); Osmolality,Calculated 286.4 MOS/KG (273-304); Potassium 4.1 MMOL/L (3.5-5.1); Total Protein 5.9 G/DL (6.4-8.2)
[2021-02-22] MEDS ORDERED: ONDANSETRON 4 MG/2 ML VIAL IV ONE (23:00)
[2021-02-22] MEDS ORDERED: MORPHINE 2 MG/1 ML SYRINGE IV STA (23:00)
[2021-02-23] MEDS ORDERED: GLUCAGON 1 MG VIAL IM PRN ×2 (00:01)
[2021-02-23] MEDS ORDERED: BISACODYL 5 MG TABLET PO PRN (00:01)
[2021-02-23] MEDS ORDERED: NICOTINE 21 MG/24 HR PATCH TRANSDERM PRN (00:01)
[2021-02-23] MEDS ORDERED: ALBUTEROL/IPRATROPIUM 3 ML NEB RESP TX PRN (00:01)
[2021-02-23] MEDS ORDERED: DEXTROSE 50% 25 GM/50 ML VIAL IV PRN (00:01)
[2021-02-23] MEDS ORDERED: DEXTROSE 50% 25 GM/50 ML SYRINGE IV PRN (00:01)
[2021-02-23] MEDS ORDERED: guaiFENesin/DM ER 600-30 MG TABLET PO PRN (00:01)
[2021-02-23] MEDS ORDERED: diphenhydrAMINE CAP 25 MG CAPSULE PO PRN (00:01)
[2021-02-23 01:10] LABS: Bacteria,Urine Many /HPF (Few); Bilirubin,Urine Negative (Negative); Blood, Urine Negative (Negative); Glucose,Urine (UA) Negative (Negative); Ketones,Urine 5 mg/dL (Negative); Mucus,Urine Occasional /LPF (Occasional); Nitrite,Urine Positive (Negative); Protein,Urine 30 MG/DL; RBC,Urine <1 /HPF (0-4); Squamous Epithelial Cell,Urine Occasional /HPF (0-10); Urine Appearance CLEAR (Clear); Urine Color Yellow (Yellow); Urine Specific Gravity 1.019 (1.001-1.035); Urine Urobilinogen < 2.0 EU/DL (<2.0)
[2021-02-23] MEDS: HEPARIN 5,000 UNIT/1 ML VIAL SUBCUT SCH ×3 (01:56→23:30)
[2021-02-23 05:45] LABS: Basophils % 0.5 % (0.0-0.8); Eosinophils # 0.1 10*3/uL (0.0-0.87); Eosinophils % 1.8 % (0.00-10.9); Hematocrit 30.4 VOL% (35.7-47.0); Hemoglobin 9.4 GM/DL (12.0-16.0); Immature Granulocytes % 0.5 %; Immature Granulocytes Absolute 0.02 #; Lymphocytes # 0.7 10*3/uL (1.4-4.0); Lymphocytes % 16.6 % (21.3-54.2); Mean Corpuscular HGB Conc 30.9 GM/DL (32-36); Mean Corpuscular Volume 87.4 FL (87-102); Mean Platelet Volume 10.3 FL (9.6-12.0); Monocytes % 6.1 % (1.7-12.7); Neutrophils % 74.5 % (38.7-73.9); Platelet Count 161 T/CUMM (130-400); Red Blood Count 3.48 MC/CUMM (3.8-5.5); Red Cell Distribution Width 15.4 % (9.3-17.3); White Blood Count 3.9 T/CUMM (4-12)
[2021-02-23 05:58] LABS: Albumin 2.9 G/DL (3.4-5.0); Bilirubin,Total 0.9 MG/DL (0.20-1.00); Calcium 8.8 MG/DL (8.5-10.1); Osmolality,Calculated 282.4 MOS/KG (273-304); Potassium 3.4 MMOL/L (3.5-5.1); Total Protein 5.5 G/DL (6.4-8.2)
[2021-02-23 06:36] LABS: Hepatitis B Core IgM Quant 0.14 Index; Hepatitis B Surface Ag Quant < 0.10 Index; Hepatitis B Surface Ag Result Non-Reactive (NonReactive); Hepatitis C Virus Ab Quant < 0.02 Index; Hepatitis C Virus Ab Result Non-Reactive (NonReactive)
[2021-02-23] MEDS: PANTOPRAZOLE 40 MG TABLET PO SCH (12:06)
[2021-02-23] MEDS ORDERED: LOSARTAN 50 MG TABLET PO SCH (14:30)
[2021-02-23] MEDS: MORPHINE 2 MG/1 ML SYRINGE IV PRN (17:24)
[2021-02-23] MEDS: SERTRALINE 25 MG TABLET PO SCH (21:00)
[2021-02-23] MEDS: ATORVASTATIN 40 MG TABLET PO SCH (21:00)
[2021-02-23] MEDS: ASPIRIN CHEW 81 MG TABLET PO SCH (21:00)
[2021-02-23] MEDS: METOPROLOL TARTRATE 25 MG TABLET PO SCH (21:00)
[2021-02-24] MEDS: MORPHINE 2 MG/1 ML SYRINGE IV PRN (01:56)
[2021-02-24] MEDS ORDERED: KETOROLAC 15 MG/1 ML VIAL IV ONE ×2 (04:56→22:58)
[2021-02-24 05:26] LABS: Basophils % 0.6 % (0.0-0.8); Eosinophils # 0.1 10*3/uL (0.0-0.87); Hemoglobin 9.4 GM/DL (12.0-16.0); Immature Granulocytes % 0.3 %; Immature Granulocytes Absolute 0.01 #; Lymphocytes % 28.5 % (21.3-54.2); Mean Corpuscular HGB Conc 30.3 GM/DL (32-36); Mean Corpuscular Volume 88.1 FL (87-102); Mean Platelet Volume 10.5 FL (9.6-12.0); Neutrophils % 56.6 % (38.7-73.9); Platelet Count 152 T/CUMM (130-400); Red Blood Count 3.52 MC/CUMM (3.8-5.5); Red Cell Distribution Width 15.3 % (9.3-17.3); White Blood Count 3.5 T/CUMM (4-12)
[2021-02-24 05:39] LABS: Calcium 8.9 MG/DL (8.5-10.1); Osmolality,Calculated 285.3 MOS/KG (273-304); Potassium 3.8 MMOL/L (3.5-5.1)
[2021-02-24] MEDS: PANTOPRAZOLE 40 MG TABLET PO SCH (09:00)
[2021-02-24] MEDS: METOPROLOL TARTRATE 25 MG TABLET PO SCH ×2 (09:01→23:28)
[2021-02-24] MEDS: LOSARTAN 25 MG TABLET PO SCH (09:01)
[2021-02-24] MEDS: ursodioL 300 MG CAPSULE PO SCH ×2 (11:40→21:24)
[2021-02-24] MEDS: HEPARIN 5,000 UNIT/1 ML VIAL SUBCUT SCH ×2 (11:40→23:32)
[2021-02-24] MEDS: SERTRALINE 25 MG TABLET PO SCH (21:25)
[2021-02-24] MEDS: ASPIRIN CHEW 81 MG TABLET PO SCH (21:25)
[2021-02-24] MEDS: ATORVASTATIN 40 MG TABLET PO SCH (21:25)
[2021-02-24] MEDS: BISACODYL 5 MG TABLET PO SCH (21:25)
[2021-02-25 06:38] LABS: Basophils % 0.5 % (0.0-0.8); Eosinophils # 0.1 10*3/uL (0.0-0.87); Eosinophils % 1.2 % (0.00-10.9); Hematocrit 36.7 VOL% (35.7-47.0); Immature Granulocytes % 0.5 %; Immature Granulocytes Absolute 0.02 #; Lymphocytes # 1.3 10*3/uL (1.4-4.0); Mean Corpuscular Volume 88.6 FL (87-102); Mean Platelet Volume 10.5 FL (9.6-12.0); Monocytes % 9.6 % (1.7-12.7); Neutrophils % 57.2 % (38.7-73.9); Platelet Count 163 T/CUMM (130-400); Red Blood Count 4.14 MC/CUMM (3.8-5.5); White Blood Count 4.2 T/CUMM (4-12)
[2021-02-25 06:58] LABS: Albumin 2.6 G/DL (3.4-5.0); Bilirubin,Total 0.7 MG/DL (0.20-1.00); Calcium 8.7 MG/DL (8.5-10.1); Osmolality,Calculated 282.4 MOS/KG (273-304); Potassium 3.8 MMOL/L (3.5-5.1); Total Protein 5.8 G/DL (6.4-8.2)
[2021-02-25 07:22] LABS: Alanine Aminotransferase 76 U/L (13-56); Albumin 2.8 G/DL (3.4-5.0); Alkaline Phosphatase 203 U/L (45-117); Aspartate Amino Transferase 42 U/L (0-37); Bilirubin,Direct < 0.100 MG/DL (0.0-0.20); Bilirubin,Indirect 0.3 MG/DL (0.0-1.0); Bilirubin,Total < 0.39 MG/DL (0.20-1.00); Total Protein 5.8 G/DL (6.4-8.2)
[2021-02-25] MEDS: ursodioL 300 MG CAPSULE PO SCH ×2 (09:06→21:43)
[2021-02-25] MEDS: PANTOPRAZOLE 40 MG TABLET PO SCH (09:06)
[2021-02-25] MEDS: METOPROLOL TARTRATE 25 MG TABLET PO SCH ×2 (09:06→21:43)
[2021-02-25] MEDS: LOSARTAN 25 MG TABLET PO SCH (09:06)
[2021-02-25] MEDS ORDERED: LOSARTAN 25 MG TABLET PO ONE (09:08)
[2021-02-25] MEDS: BISACODYL 5 MG TABLET PO SCH ×2 (10:09→21:42)
[2021-02-25] MEDS ORDERED: TUBERCULIN SKIN TEST 0.1 ML SYRINGE INTRADERM ONE (11:45)
[2021-02-25] MEDS: HEPARIN 5,000 UNIT/1 ML VIAL SUBCUT SCH (12:44)
[2021-02-25] MEDS: ONDANSETRON 4 MG/2 ML VIAL IV PRN ×2 (16:42→21:52)
[2021-02-25] MEDS ORDERED: DICLOFENAC 1.3% PATCH 5/PACK TRANSDERM SCH (21:00)
[2021-02-25] MEDS: ATORVASTATIN 40 MG TABLET PO SCH (21:43)
[2021-02-25] MEDS: ASPIRIN CHEW 81 MG TABLET PO SCH (21:43)
[2021-02-25] MEDS: SERTRALINE 25 MG TABLET PO SCH (21:43)
[2021-02-25] MEDS: ERTAPENEM 1,000 MG in SODIUM CHLORIDE 0.9% 100 ML IV SCH (21:44)
[2021-02-26] MEDS: HEPARIN 5,000 UNIT/1 ML VIAL SUBCUT SCH ×3 (02:33→23:47)
[2021-02-26] MEDS: ONDANSETRON 4 MG/2 ML VIAL IV PRN ×4 (04:03→20:52)
[2021-02-26 04:25] LABS: Basophils % 0.5 % (0.0-0.8); Eosinophils # 0.1 10*3/uL (0.0-0.87); Eosinophils % 1.5 % (0.00-10.9); Hematocrit 31.6 VOL% (35.7-47.0); Hemoglobin 9.6 GM/DL (12.0-16.0); Immature Granulocytes % 0.2 %; Immature Granulocytes Absolute 0.01 #; Lymphocytes # 1.4 10*3/uL (1.4-4.0); Lymphocytes % 32.9 % (21.3-54.2); Mean Corpuscular HGB Conc 30.4 GM/DL (32-36); Mean Corpuscular Volume 87.1 FL (87-102); Monocytes % 8.5 % (1.7-12.7); Neutrophils % 56.4 % (38.7-73.9); Platelet Count 167 T/CUMM (130-400); Red Blood Count 3.63 MC/CUMM (3.8-5.5); Red Cell Distribution Width 14.7 % (9.3-17.3); White Blood Count 4.1 T/CUMM (4-12)
[2021-02-26 04:56] LABS: Alanine Aminotransferase 56 U/L (13-56); Albumin 2.6 G/DL (3.4-5.0); Alkaline Phosphatase 168 U/L (45-117); Aspartate Amino Transferase 26 U/L (0-37); Bilirubin,Total < 0.39 MG/DL (0.20-1.00); Blood Urea Nitrogen 17 MG/DL (7-18); Calcium 8.6 MG/DL (8.5-10.1); Carbon Dioxide 27 MMOL/L (21-32); Estimated Glom Filtration Rate 52 ML/MIN; Glucose 108 MG/DL (74-106); Osmolality,Calculated 279.5 MOS/KG (273-304); Potassium 3.8 MMOL/L (3.5-5.1); Sodium 139 MMOL/L (136-145); Total Protein 5.4 G/DL (6.4-8.2)
[2021-02-26] MEDS: LACTATED RINGERS 1,000 ML IV SCH (10:12)
[2021-02-26] MEDS: ursodioL 300 MG CAPSULE PO SCH ×2 (10:13→20:41)
[2021-02-26] MEDS: PANTOPRAZOLE 40 MG TABLET PO SCH (10:13)
[2021-02-26] MEDS: METOPROLOL TARTRATE 25 MG TABLET PO SCH ×2 (10:13→20:41)
[2021-02-26] MEDS: LOSARTAN 50 MG TABLET PO SCH (10:13)
[2021-02-26] MEDS: BISACODYL 5 MG TABLET PO SCH ×2 (10:13→20:41)
[2021-02-26] MEDS ORDERED: LIDOCAINE 2% 5 ML VIAL ONE (11:20)
[2021-02-26] MEDS ORDERED: propofoL 200 MG/20 ML VIAL IV ONE (11:20)
[2021-02-26] MEDS: DICLOFENAC 1.3% PATCH 5/PACK TRANSDERM SCH (12:35)
[2021-02-26] MEDS: ATORVASTATIN 40 MG TABLET PO SCH (20:40)
[2021-02-26] MEDS: SERTRALINE 25 MG TABLET PO SCH (20:40)
[2021-02-26] MEDS: ASPIRIN CHEW 81 MG TABLET PO SCH (20:40)
[2021-02-26] MEDS: hydrALAZINE 20 MG/1 ML VIAL IV PRN (20:45)
[2021-02-26] MEDS: ERTAPENEM 1,000 MG in SODIUM CHLORIDE 0.9% 100 ML IV SCH (21:15)
[2021-02-26] MEDS: MORPHINE 2 MG/1 ML SYRINGE IV PRN (22:30)
[2021-02-26] MEDS: ZALEPLON 5 MG CAPSULE PO PRN (22:34)
[2021-02-27] MEDS: hydrALAZINE 20 MG/1 ML VIAL IV PRN (04:15)
[2021-02-27 04:30] LABS: Basophils % 0.6 % (0.0-0.8); Eosinophils % 0.6 % (0.00-10.9); Hematocrit 33.8 VOL% (35.7-47.0); Hemoglobin 10.4 GM/DL (12.0-16.0); Immature Granulocytes % 0.6 %; Immature Granulocytes Absolute 0.03 #; Lymphocytes # 1.4 10*3/uL (1.4-4.0); Lymphocytes % 27.3 % (21.3-54.2); Mean Corpuscular HGB Conc 30.8 GM/DL (32-36); Mean Platelet Volume 9.8 FL (9.6-12.0); Monocytes % 7.5 % (1.7-12.7); Neutrophils % 63.4 % (38.7-73.9); Platelet Count 167 T/CUMM (130-400); Red Blood Count 3.93 MC/CUMM (3.8-5.5); Red Cell Distribution Width 14.4 % (9.3-17.3); White Blood Count 5.1 T/CUMM (4-12)
[2021-02-27 04:56] LABS: Albumin 2.6 G/DL (3.4-5.0); Bilirubin,Total 0.8 MG/DL (0.20-1.00); Calcium 8.6 MG/DL (8.5-10.1); Osmolality,Calculated 281.3 MOS/KG (273-304); Potassium 3.7 MMOL/L (3.5-5.1); Total Protein 5.5 G/DL (6.4-8.2)
[2021-02-27] MEDS: MORPHINE 2 MG/1 ML SYRINGE IV PRN (05:28)
[2021-02-27] MEDS: ONDANSETRON 4 MG/2 ML VIAL IV PRN ×2 (05:30→08:20)
[2021-02-27] MEDS: METOPROLOL TARTRATE 25 MG TABLET PO SCH ×2 (08:20→21:12)
[2021-02-27] MEDS: BISACODYL 5 MG TABLET PO SCH ×2 (08:20→21:13)
[2021-02-27] MEDS: ursodioL 300 MG CAPSULE PO SCH ×2 (08:20→21:13)
[2021-02-27] MEDS: LOSARTAN 50 MG TABLET PO SCH (08:21)
[2021-02-27] MEDS: PANTOPRAZOLE 40 MG TABLET PO SCH (08:21)
[2021-02-27] MEDS: DICLOFENAC 1.3% PATCH 5/PACK TRANSDERM SCH (10:01)
[2021-02-27] MEDS: HEPARIN 5,000 UNIT/1 ML VIAL SUBCUT SCH (12:05)
[2021-02-27] MEDS: ATORVASTATIN 40 MG TABLET PO SCH (21:12)
[2021-02-27] MEDS: SERTRALINE 25 MG TABLET PO SCH (21:13)
[2021-02-27] MEDS: ASPIRIN CHEW 81 MG TABLET PO SCH (21:13)
[2021-02-27] MEDS: ERTAPENEM 1,000 MG in SODIUM CHLORIDE 0.9% 100 ML IV SCH (21:21)
[2021-02-28] MEDS: ONDANSETRON 4 MG/2 ML VIAL IV PRN ×3 (01:10→21:23)
[2021-02-28] MEDS: HEPARIN 5,000 UNIT/1 ML VIAL SUBCUT SCH ×2 (01:11→16:04)
[2021-02-28] MEDS: METOPROLOL TARTRATE 25 MG TABLET PO SCH ×2 (08:22→21:16)
[2021-02-28] MEDS: LOSARTAN 50 MG TABLET PO SCH (08:23)
[2021-02-28] MEDS: PANTOPRAZOLE 40 MG TABLET PO SCH (08:23)
[2021-02-28] MEDS: ursodioL 300 MG CAPSULE PO SCH ×2 (08:25→21:15)
[2021-02-28] MEDS: LACTATED RINGERS 1,000 ML IV SCH ×2 (08:25→10:45)
[2021-02-28] MEDS: BISACODYL 5 MG TABLET PO SCH ×2 (08:25→21:31)
[2021-02-28] MEDS: DICLOFENAC 1.3% PATCH 5/PACK TRANSDERM SCH (08:26)
[2021-02-28] MEDS: ASPIRIN CHEW 81 MG TABLET PO SCH (21:15)
[2021-02-28] MEDS: ATORVASTATIN 40 MG TABLET PO SCH (21:15)
[2021-02-28] MEDS: SERTRALINE 25 MG TABLET PO SCH (21:16)
[2021-02-28] MEDS: ZALEPLON 5 MG CAPSULE PO PRN (21:17)
[2021-02-28] MEDS: ERTAPENEM 1,000 MG in SODIUM CHLORIDE 0.9% 100 ML IV SCH (21:30)
[2021-03-01] MEDS: HEPARIN 5,000 UNIT/1 ML VIAL SUBCUT SCH ×2 (01:13→13:42)
[2021-03-01] MEDS: ONDANSETRON 4 MG/2 ML VIAL IV PRN ×3 (03:17→13:44)
[2021-03-01 04:25] LABS: Basophils % 0.8 % (0.0-0.8); Eosinophils # 0.1 10*3/uL (0.0-0.87); Eosinophils % 1.6 % (0.00-10.9); Hematocrit 34.1 VOL% (35.7-47.0); Hemoglobin 10.6 GM/DL (12.0-16.0); Immature Granulocytes % 0.4 %; Immature Granulocytes Absolute 0.02 #; Lymphocytes # 1.8 10*3/uL (1.4-4.0); Lymphocytes % 35.3 % (21.3-54.2); Mean Corpuscular HGB Conc 31.1 GM/DL (32-36); Mean Corpuscular Volume 86.1 FL (87-102); Mean Platelet Volume 10.5 FL (9.6-12.0); Monocytes % 8.9 % (1.7-12.7); Platelet Count 208 T/CUMM (130-400); Red Blood Count 3.96 MC/CUMM (3.8-5.5); Red Cell Distribution Width 14.6 % (9.3-17.3)
[2021-03-01 04:43] LABS: Calcium 8.6 MG/DL (8.5-10.1); Potassium 3.8 MMOL/L (3.5-5.1)
[2021-03-01] MEDS: DICLOFENAC 1.3% PATCH 5/PACK TRANSDERM SCH (08:42)
[2021-03-01] MEDS: PANTOPRAZOLE 40 MG TABLET PO SCH (08:44)
[2021-03-01] MEDS: LOSARTAN 50 MG TABLET PO SCH (08:45)
[2021-03-01] MEDS: METOPROLOL TARTRATE 25 MG TABLET PO SCH ×2 (08:45→21:10)
[2021-03-01] MEDS: LACTATED RINGERS 1,000 ML IV SCH (08:49)
[2021-03-01] MEDS: ursodioL 300 MG CAPSULE PO SCH ×2 (08:50→21:11)
[2021-03-01] MEDS: BISACODYL 5 MG TABLET PO SCH ×2 (08:50→21:12)
[2021-03-01] MEDS: MORPHINE 2 MG/1 ML SYRINGE IV PRN (13:44)
[2021-03-01] MEDS: SERTRALINE 25 MG TABLET PO SCH (21:10)
[2021-03-01] MEDS: ATORVASTATIN 40 MG TABLET PO SCH (21:12)
[2021-03-01] MEDS: ERTAPENEM 1,000 MG in SODIUM CHLORIDE 0.9% 100 ML IV SCH (21:12)
[2021-03-01] MEDS: ASPIRIN CHEW 81 MG TABLET PO SCH (21:12)
[2021-03-02] MEDS: HEPARIN 5,000 UNIT/1 ML VIAL SUBCUT SCH ×2 (00:27→15:35)
[2021-03-02 05:49] LABS: Basophils % 0.2 % (0.0-0.8); Eosinophils % 0.5 % (0.00-10.9); Hematocrit 33.7 VOL% (35.7-47.0); Hemoglobin 10.4 GM/DL (12.0-16.0); Immature Granulocytes % 0.2 %; Immature Granulocytes Absolute 0.01 #; Lymphocytes # 1.4 10*3/uL (1.4-4.0); Mean Corpuscular HGB Conc 30.9 GM/DL (32-36); Mean Corpuscular Volume 85.3 FL (87-102); Mean Platelet Volume 10.2 FL (9.6-12.0); Monocytes % 8.7 % (1.7-12.7); Neutrophils % 66.4 % (38.7-73.9); Platelet Count 227 T/CUMM (130-400); Red Blood Count 3.95 MC/CUMM (3.8-5.5); Red Cell Distribution Width 14.6 % (9.3-17.3); White Blood Count 5.6 T/CUMM (4-12)
[2021-03-02 06:11] LABS: Calcium 8.5 MG/DL (8.5-10.1); Potassium 3.6 MMOL/L (3.5-5.1)
[2021-03-02] MEDS: LOSARTAN 50 MG TABLET PO SCH (10:21)
[2021-03-02] MEDS: LACTATED RINGERS 1,000 ML IV SCH (10:21)
[2021-03-02] MEDS: ursodioL 300 MG CAPSULE PO SCH ×2 (10:21→21:40)
[2021-03-02] MEDS: BISACODYL 5 MG TABLET PO SCH (10:22)
[2021-03-02] MEDS: DICLOFENAC 1.3% PATCH 5/PACK TRANSDERM SCH (10:22)
[2021-03-02] MEDS: METOPROLOL TARTRATE 25 MG TABLET PO SCH ×2 (10:22→21:40)
[2021-03-02] MEDS: PANTOPRAZOLE 40 MG TABLET PO SCH (10:22)
[2021-03-02] MEDS ORDERED: SCOPOLAMINE 1.5 MG PATCH TRANSDERM ONE (14:13)
[2021-03-02] MEDS: MORPHINE 2 MG/1 ML SYRINGE IV PRN (19:36)
[2021-03-02] MEDS: SERTRALINE 25 MG TABLET PO SCH (21:39)
[2021-03-02] MEDS: ASPIRIN CHEW 81 MG TABLET PO SCH (21:39)
[2021-03-02] MEDS: ATORVASTATIN 40 MG TABLET PO SCH (21:39)
[2021-03-02] MEDS: ONDANSETRON 4 MG/2 ML VIAL IV PRN (23:04)
[2021-03-03] MEDS: HEPARIN 5,000 UNIT/1 ML VIAL SUBCUT SCH ×2 (00:16→12:59)
[2021-03-03] MEDS: ERTAPENEM 1,000 MG in SODIUM CHLORIDE 0.9% 100 ML IV SCH ×2 (02:24→22:00)
[2021-03-03] MEDS: BISACODYL 5 MG TABLET PO SCH ×3 (02:24→22:01)
[2021-03-03] MEDS: MORPHINE 2 MG/1 ML SYRINGE IV PRN ×2 (03:49→14:58)
[2021-03-03] MEDS: ONDANSETRON 4 MG/2 ML VIAL IV PRN ×3 (03:51→21:19)
[2021-03-03 05:07] LABS: Basophils % 0.4 % (0.0-0.8); Eosinophils % 0.4 % (0.00-10.9); Hemoglobin 10.9 GM/DL (12.0-16.0); Immature Granulocytes % 0.2 %; Immature Granulocytes Absolute 0.01 #; Lymphocytes # 1.1 10*3/uL (1.4-4.0); Lymphocytes % 19.9 % (21.3-54.2); Mean Corpuscular HGB Conc 31.1 GM/DL (32-36); Mean Corpuscular Volume 86.2 FL (87-102); Mean Platelet Volume 9.9 FL (9.6-12.0); Monocytes % 7.5 % (1.7-12.7); Neutrophils % 71.6 % (38.7-73.9); Platelet Count 198 T/CUMM (130-400); Red Blood Count 4.06 MC/CUMM (3.8-5.5); Red Cell Distribution Width 14.6 % (9.3-17.3); White Blood Count 5.5 T/CUMM (4-12)
[2021-03-03 05:24] LABS: Calcium 8.8 MG/DL (8.5-10.1); Osmolality,Calculated 289.8 MOS/KG (273-304); Potassium 3.3 MMOL/L (3.5-5.1)
[2021-03-03] MEDS: ursodioL 300 MG CAPSULE PO SCH ×2 (10:14→22:01)
[2021-03-03] MEDS: LOSARTAN 50 MG TABLET PO SCH (10:14)
[2021-03-03] MEDS: PANTOPRAZOLE 40 MG TABLET PO SCH (10:14)
[2021-03-03] MEDS: METOPROLOL TARTRATE 25 MG TABLET PO SCH ×2 (10:14→21:11)
[2021-03-03] MEDS: DICLOFENAC 1.3% PATCH 5/PACK TRANSDERM SCH (10:16)
[2021-03-03] MEDS ORDERED: POTASSIUM CHLORIDE 20 MEQ TABLET PO ONE (12:53)
[2021-03-03] MEDS: LACTATED RINGERS 1,000 ML IV SCH (14:37)
[2021-03-03 15:36] LABS: Calcium 8.5 MG/DL (8.5-10.1); Osmolality,Calculated 280.5 MOS/KG (273-304); Potassium 3.8 MMOL/L (3.5-5.1)
[2021-03-03] MEDS: ATORVASTATIN 40 MG TABLET PO SCH (21:07)
[2021-03-03] MEDS: ASPIRIN CHEW 81 MG TABLET PO SCH (21:10)
[2021-03-03] MEDS: SERTRALINE 25 MG TABLET PO SCH (21:11)
[2021-03-04] MEDS: HEPARIN 5,000 UNIT/1 ML VIAL SUBCUT SCH ×2 (00:18→16:29)
[2021-03-04] MEDS: MORPHINE 2 MG/1 ML SYRINGE IV PRN ×2 (03:01→14:34)
[2021-03-04] MEDS: ONDANSETRON 4 MG/2 ML VIAL IV PRN (03:03)
[2021-03-04 07:22] LABS: Basophils % 0.5 % (0.0-0.8); Eosinophils # 0.1 10*3/uL (0.0-0.87); Eosinophils % 1.5 % (0.00-10.9); Hematocrit 34.4 VOL% (35.7-47.0); Hemoglobin 10.4 GM/DL (12.0-16.0); Immature Granulocytes % 0.5 %; Immature Granulocytes Absolute 0.02 #; Lymphocytes # 1.2 10*3/uL (1.4-4.0); Lymphocytes % 29.6 % (21.3-54.2); Mean Corpuscular HGB Conc 30.2 GM/DL (32-36); Mean Corpuscular Volume 87.5 FL (87-102); Mean Platelet Volume 9.9 FL (9.6-12.0); Monocytes % 6.6 % (1.7-12.7); Neutrophils % 61.3 % (38.7-73.9); Platelet Count 180 T/CUMM (130-400); Red Blood Count 3.93 MC/CUMM (3.8-5.5); Red Cell Distribution Width 14.7 % (9.3-17.3); White Blood Count 4.1 T/CUMM (4-12)
[2021-03-04 07:36] LABS: Calcium 8.8 MG/DL (8.5-10.1); Osmolality,Calculated 283.3 MOS/KG (273-304); Potassium 3.8 MMOL/L (3.5-5.1)
[2021-03-04] MEDS: DICLOFENAC 1.3% PATCH 5/PACK TRANSDERM SCH (09:25)
[2021-03-04] MEDS: LOSARTAN 50 MG TABLET PO SCH (09:25)
[2021-03-04] MEDS: METOPROLOL TARTRATE 25 MG TABLET PO SCH ×2 (09:25→20:36)
[2021-03-04] MEDS: ursodioL 300 MG CAPSULE PO SCH ×2 (09:25→20:35)
[2021-03-04] MEDS: LACTATED RINGERS 1,000 ML IV SCH (09:25)
[2021-03-04] MEDS: BISACODYL 5 MG TABLET PO SCH ×2 (09:25→21:22)
[2021-03-04] MEDS: PANTOPRAZOLE 40 MG TABLET PO SCH (09:26)
[2021-03-04] MEDS: ERTAPENEM 1,000 MG in SODIUM CHLORIDE 0.9% 100 ML IV SCH (10:59)
[2021-03-04] MEDS ORDERED: TUBERCULIN SKIN TEST 0.1 ML SYRINGE INTRADERM ONE (11:41)
[2021-03-04] MEDS: ASPIRIN CHEW 81 MG TABLET PO SCH (20:35)
[2021-03-04] MEDS: ATORVASTATIN 40 MG TABLET PO SCH (20:35)
[2021-03-04] MEDS: SERTRALINE 25 MG TABLET PO SCH (20:36)
[2021-03-05] MEDS: HEPARIN 5,000 UNIT/1 ML VIAL SUBCUT SCH (00:34)
[2021-03-05] MEDS: LACTATED RINGERS 1,000 ML IV SCH (07:36)
[2021-03-05 08:12] VITALS: BP 122/53
== END 2021-03-05 08:18 | DRG 309 ==
LOC: N.EDINP 17:10 → N.ED 17:10 → N.EDINP 02-23 02:42 → N.TELEN 02-23 03:16 → SUATTDRO 02-25 14:43
PROVIDERS: ADMIT Internal Medicine; ATTEND Hospitalist